=== PATIENT | male | born 1980 | race Caucasian/White ===

== ENCOUNTER → 2020-09-20 12:51 | Outpatient (BNVA) | payer OTHER, SELFPAY | PROVIDERS: PCP Internal Medicine; Visit Provider Surgery ==

== ENCOUNTER 2020-11-14 06:06 | Day surgery (SDC) | payer OTHER, MEDICAID, SELFPAY ==
[2020-11-07 14:11] VITALS: BMI 43.3
--- NOTE | 2020-11-11 07:48 | HO.ANESPROP2 ---
Documented by User: Sarah Quinones 11/11/20 07:49 HPI - Anesthesia Eval Consult details Narrative: 40yo M for Hernia Repair Umbilical with Mesh PMFSH Active Problems Active Problems: All Active Problems (Updated 11/07/20 @ 14:14 by Nathalia Pino) Umbilical hernia (Acute) Past Medical History Medical History Depression Elevated cholesterol HTN (hypertension) Sleep apnea Surgical History Surgical History Hx of adenoidectomy Hx of arthroscopic knee surgery Social History Social History Are you a primary home care administrator to a significant other at home: No Do you presently have visiting nurse or other home services: No Alcohol intake: current Alcohol intake frequency: does not drink Smoking Status: Former smoker Smoking Quit Date: 2002 Use of substances other than those prescribed or required for medical reasons: Yes Substance Use Type Other:: advised to hold marijuana pre-op Substance Use Frequency: Occasionally Have you been hit, kicked, punched, or otherwise hurt by someone within the past year? If so, by whom?: No Advance Directives Information Provided: No Recently lost weight without trying: No Meds Allergies Allergy/AdvReac Type Severity Reaction Status Date / Time No Known Allergies Allergy Verified 11/14/20 06:30 Home Medications Medication Instructions Recorded Confirmed Last Taken Type amlodipine 10 mg tablet 10 mg PO DAILY 09/20/20 11/14/20 11/13/20 19:00 History lisinopril 20 1 tab PO DAILY 09/20/20 11/14/20 11/13/20 19:00 History mg-hydrochlorothiazide 25 mg tablet Abilify 11/14/20 11/14/20 11/13/20 19:00 History hydrochlorothiazide 11/14/20 11/13/20 19:00 History Exam Exam Date and Time: November 11, 2020 0748 Height,Weight and Vital Signs: Height 6 ft 1 in Weight 149 kg Assessment and Plan Assessment Anesthesia Assessment: Chart Reviewed Documented by User: Abby Tse 11/14/20 07:37 PMFSH Past Medical History Medical History Depression Elevated cholesterol HTN (hypertension) Sleep apnea Surgical History Surgical History Hx of adenoidectomy Hx of arthroscopic knee surgery Social History Social History Are you a primary home care administrator to a significant other at home: No Do you presently have visiting nurse or other home services: No Alcohol intake: current Alcohol intake frequency: does not drink Smoking Status: Former smoker Smoking Quit Date: 2002 Use of substances other than those prescribed or required for medical reasons: Yes Substance Use Type Other:: advised to hold marijuana pre-op Substance Use Frequency: Occasionally Have you been hit, kicked, punched, or otherwise hurt by someone within the past year? If so, by whom?: No Advance Directives Information Provided: No Recently lost weight without trying: No Meds Allergies Allergy/AdvReac Type Severity Reaction Status Date / Time No Known Allergies Allergy Verified 11/14/20 06:30 Home Medications Medication Instructions Recorded Confirmed Last Taken Type amlodipine 10 mg tablet 10 mg PO DAILY 09/20/20 11/14/20 11/13/20 19:00 History lisinopril 20 1 tab PO DAILY 09/20/20 11/14/20 11/13/20 19:00 History mg-hydrochlorothiazide 25 mg tablet Abilify 11/14/20 11/14/20 11/13/20 19:00 History hydrochlorothiazide 11/14/20 11/13/20 19:00 History Exam Airway Mallampati Class: II (Esquivel, small mouth) TM Dist: >3cm Neck ROM: Full Loose/Missing/Broken Teeth: No Heart: RRR Lungs: CTA Assessment and Plan Assessment Anesthesia Assessment: Anesthesia Plan Discussed and Chart Reviewed Final Anesthetic Review NPO: Yes ASA Class: III Final Preanesthetic Review: Meds/Allgs Chart Reviewed, Consent Obtained/Reviewed and Anes Risks/Benef Reviewed Patient Risk: Intermediate Procedure Risk: Low Anesthetic Plan Anesthetic Plan: GA Disposition: Standard PACU
[2020-11-14] VITALS (7 sets, daily range): BP systolic 108–133; BP diastolic 61–81; PULSE 86–103; RESP 18–20; TEMP 36.1–37.1; O2SAT 92–99
[2020-11-14] MEDS: Lactated Ringers 1,000 ML 100 ML IVCONT (07:01)
--- NOTE | 2020-11-14 07:13 | MHC.SHP ---
Pre-Procedural Eval Section A The patient is an INPATIENT: No Changes since office visit: Yes Patient answered all questions; No Cold of Flu in the past 2 weeks, No New Medical Problems and No Changes in Medication The History & Physical has been completed within 30 days and I have reviewed it.: Yes Section B Chief Complaint: Umbilical Hernia Allergies: Allergies Allergy/AdvReac Type Severity Reaction Status Date / Time No Known Allergies Allergy Verified 11/14/20 06:30 Plan Diagnosis/Plan: Unchanged I have reviewed the history and physical and performed a pertinent physical examination on my patient. No changes have occurred unless specified.
--- NOTE | 2020-11-14 07:15 | PC.NURSE ---
PATIENT GOT EXTREMELY ANXIOUS AND DIAPHORECTIC WITH IV INSERTION. PATIENT HAS SINCE CALMED DOWN. BP 112/73, HR 88. PATIENT LESS DIAPHORECTIC AT THIS TIME.
--- NOTE | 2020-11-14 07:21 | PC.NURSE ---
PATIENT HAVING PAC'S. ANESTHESIOLOGIST AT BEDSIDE AND IS AWARE. ANESTHESIOLOGIST ASSESSING PATIENT. STRIP RUN.
--- NOTE | 2020-11-14 09:27 | P.OP_ITS ---
Operative Note Operative Note Date of Service: 11/14/20 Narrative: Preoperative diagnosis: Umbilical hernia, large Postoperative diagnosis: Same Procedure: Repair of large umbilical hernia with mesh Surgeon: Buzz Minaya MD Legal Compliance Officer: None Anesthesia: General endotracheal Indications for procedure: 40-year-old male patient with a large umbilical hernia extending above the umbilicus measuring approximately 8 cm in diameter. Operative findings: Fascial defect noted to be approximately 4 cm in diameter. This was repaired using an 8 cm round Ventralex Specimen: Omentum, hernia sac Estimated blood loss: 20 mL Complications: None Procedure details: Patient was brought to the OR and placed in a supine position. After administering general anesthesia the patient's abdomen was prepped with ChloraPrep and draped in a sterile fashion. A surgical time-out wa s called and the consent confirmed. Patient received preoperative antibiotics and Venodyne boots were in place. Local anesthesia consisting of 0.75% Sensorcaine with epinephrine was then infiltrated in the midline surrounding the umbilicus. A midline incision was made measuring approximately 12 cm in length to about the level of the umbilicus. This was carried out through subcutaneous tissue and up to the hernia sac. The hernia sac was then circumferentially dissected free down to the fascial defect. Umbilical skin was elevated off the fascial defect using electrocautery. Hemostasis was assured all times using electrocautery. Hemostasis was also assured using free ties of 3-0 Polysorb. When the hernia sac was completely the dissected free the sac was entered and omentum found with in the hernia sac. This was densely adherent to the hernia sac. This needed to be lysed using electrocautery. A large redundant omentum was then excised using LigaSure. Hemostasis was assured using electric cautery. The remainder of the omentum was returned to abdominal cavity. Peritoneal sac was then excised and the peritoneum closed using a running 0 Polysorb suture. The preperitoneal spa ce was then dissected free using electrocautery measuring approximately 9 cm in diameter. The 8 cm round Ventralex mesh was then obtained. This was then placed in the preperitoneal space and secured in 4 quadrants using 1 Tycron sutures. Fascia was then closed over the mesh incorporating the mesh in the closure using [id number] 1 Tycron sutures. Wounds were then irrigated and suctioned dry. Additional local anesthesia was applied at this time. Deep subcutaneous tissue was closed using interrupted 3-0 Polysorb sutures. Umbilical skin was attached to the fascia using a 3-0 Polysorb suture. Dermis was reapproximated using interrupted 3 0 Polysorb sutures. Skin was then closed using a running subcuticular 4 0 Polysorb suture. Steri-Strips 4 x 4 gauze and Tegaderm were then applied. The patient tolerated the procedure well. Sponge, instrument, needle counts were reported as correct. The patient was transferred to PACU in stable condition.
[2020-11-14] MEDS: oxyCODONE HCl Immed Release 5 MG TABLET 10 MG PO (09:50)
== END 2020-11-14 11:21 | disposition home or self-care (01) ==
PROVIDERS: PCP Internal Medicine; Visit Provider Surgery
PROC: (CPT 49585; principal; 2020-11-14 07:30)
DX: K42.9 Umbilical hernia without obstruction or gangrene (principal); I10 Essential (primary) hypertension; G47.33 Obstructive sleep apnea (adult) (pediatric); Z79.899 Other long term (current) drug therapy
CPT/HCPCS: 49585; 88302; 88304; C1781; J0131; J0330; J0690; J1100; J1885; J2250; J2370; J2405; J3010

== ENCOUNTER → 2020-11-25 08:25 | Outpatient (BNVA) | payer OTHER, SELFPAY | PROVIDERS: PCP Internal Medicine; Visit Provider Surgery ==

== ENCOUNTER → 2020-12-22 08:05 | Outpatient (BNVA) | payer OTHER, SELFPAY | PROVIDERS: PCP Internal Medicine; Referring Provider Internal Medicine; Visit Provider Surgery ==

== ENCOUNTER 2025-05-28 14:33 | Outpatient (REF) | payer OTHER, SELFPAY ==
[2025-05-28 16:03] LABS: MANUAL DIFF FLAG NO
[2025-05-28 16:16] LABS: Hematocrit 49.5 % (42.0-52.0); Hemoglobin 17.1 g/dl (14.0-18.0); Imm Gran Abs Auto 0.01 X10*3/uL (0.00-0.03); Imm Gran Pct Auto 0.2 % (0.0-0.4); Lymphocytes Absolute Auto 2.7 X10*3/uL (1.2-4.9); Mean Corpuscular HGB Conc 34.5 g/dl (31.0-36.0); Mean Corpuscular Hemoglobin 30.5 pg (27.0-33.0); Mean Corpuscular Volume 88.2 fL (80.0-98.0); NRBC Abs Auto 0.000 X10*3/uL (0.0-0.012); NRBC Pct Auto 0.0 /100WBC (0.0-0.2); Platelet Count 289 X10*3/uL (160-400); Red Blood Count 5.61 X10*6/uL (4.60-5.80); White Blood Count 6.6 X10*3/uL (4.8-10.8)
--- OUTSIDE RECORDS SUMMARY | 2025-05-28 17:06 | XMS_ITS | Encounter Summary ---
Author Organization [employer] Address [address] [place] [address] Care Team Providers Care Felt Coverer Name Role Phone Paul Owusu MD Primary Care Prov ider Encounter Details Date Type Department Care Team (Late st Contact Info) Description 05/28/2025 Orders Only GENERIC EXTERNAL DATA DEPARTMENT Provider, Generic External Data Social History Tobacco Use Types Packs/Day Years Used Date Smoking Tobacco: Never Assessed Depression Answer Date Recorded Patient Health Questionnaire-9 Score 0 11/01/2022 Housing Stability Answer Date Recorded What is your housing situation today? I have rosalee tatiana 06/12/[address] you li ve. Do you have problems with any of the following? None of the above 06/12/2023 Food Insecurity Answer Date Recorded Within the past 12 months, y ou worried that your food would run out before you got money to buy more: Never True 06/12/2023 Within the past 12 months,th e food you bought just didn't last and you didn't have enough money to get more: Never True 08/2022 Transportation Answer Date Recorded In the past 12 months, has l ack of transportation kept you from medical appts, meetings, work or from getting things needed for daily living? No 06/12/2023 Utilities Answer Date Recorded In the past 12 months, has t he electric, gas, oil or water company threatened to shut off services in your home? No 06/12/2023 Depression Answer Date Recorded Patient Health Questionnaire-2 Score 0 11/01/2022 Sex and Gender Information Value Date Recorded Sex Assigned at Male 06/11/2022 10:28 AM EDT Legal Sex Male 10:28 AM EDT Gender Identity Female 06/11/2022 10:28 AM EDT Sexual Orientation Straight 06/11/2022 10 :28 AM EDT documented as of this encounter Plan of Treatment Not on file documented as of this encounter Procedures Procedure Name Priority Date/Time Associated Diagnosis Comments CBC WITH AUTO DIFFERENTIAL Routine 05/28/2025 2:40 PM EDT documented in this encounter Results * (ABNORMAL) CBC auto differential (05/28/2025 2:40 PM EDT) White Blood Count 6.6 4.8 - 10.8 X10*3/uL [facility] Red Blood Count 5.61 4.60 - 5.80 X10*6/uL [facility] Hemoglobin 17.1 14.0 - 18.0 g/dl [facility] Hematocrit 49.5 42.0 - 52.0 % [facility] Mean Corpuscular Volume 88.2 80.0 - 98.0 fL [facility] Mean Corpuscular Hemoglobin 30.5 27.0 - 33.0 pg [facility] Mean Corpuscular HGB Conc 34.5 31.0 - 36.0 g/dl [facility] Red Cell Distribution Width 12.5 11.0 - 16.0 % [facility] Platelet Count 289 160 - 400 X10*3/uL [facility] Mean Platelet Volume 9.7 9.4 - 12.4 fL [facility] Neutrophils Percent Auto 50.6 45 - 73 % [facility] Imm Gran Pct Auto 0.2 0.0 - 0.4 % [facility] Lymphocytes Percent Auto 40.2(H) 20 - 40 % [facility] Monocytes Percent Auto 6.1 2 - 11 % [facility] Eosinophils Percent Auto 2.3 0 - 4 % [facility] Basophils Percent Auto 0.6 0 - 2 % [facility] NRBC Pct Auto 0.0 0.0 - 0.2 /100WBC [facility] Neutrophils Absolute Auto 3.4 2.0 - 8.3 x10*3/uL [facility] Imm Gran Abs Auto 0.01 0.00 - 0.03 X10*3/uL [facility] Lymphocytes Absolute Auto 2.7 1.2 - 4.9 X10*3/uL [facility] Monocytes Absolute Auto 0.4 0.1 - 1.2 X10*3/uL [facility] Eosinophils Absolute Auto 0.2 0.0 - 0.4 X10*3/uL [facility] Basophils Absolute Auto 0.0 0.0 - 0.2 X10*3/uL [facility] NRBC Abs Auto 0.000 0.0 - 0.012 X10*3/uL [facility] 05/28/2025 2:40 PM EDT 05/28/2025 4:01 PM EDT us Generic External Data Provider LAB BLOOD ORDERAB LES Final Result [facility] [address] [place] [address] [phone] documented in this encounter Visit Diagnoses Not on filedocumented in this encounter Additional Health Concerns Assessment Noted Time PHQ-9 Depression Total Score: 0 11/02/19 23 3:07 PM EDT documented as of this encounter Care Teams Felt Coverer Relationship Specialty Start Date End Date Paul Owusu MD [address] [place] [id number] PCP - General Internal Medicine 01/05/20 documented as of this encounter
--- OUTSIDE RECORDS SUMMARY | 2025-05-28 17:06 | XMS_ITS | Clinical Summary ---
Author Organization [employer] Address [address] [place] [address] [address] [place] [address] Care Team Providers Care Heel Blacker Name Role Phone Paul Owusu MD Primary Care Prov ider Allergies No known active allergies Medications amLODIPine (Norvasc) 10 MG tablet TAKE 1 TABLET BY MOUTH EVERY DAY IN THE MORNING 90 tablet 3 10/01/2023 Active lisinopril-hydr oCHLOROthiazide 20-25 MG tablet TAKE 1 TABLET BY MOUTH EVERY DAY IN THE MORNING 90 tablet 3 12/11/2023 Active Active Problems Problem Noted Date Diagnosed Date Primary hypertension 11/01/2022 Assessment & Plan (11/01/2022 3:37 PM EDT): Controlled, on amlodipine, lisinopril/hctz, no changes will be made, reinforced low sodium diet and exercise as tolerated Morbid obesity (CMS/[facility]) 11/01/2022 Assessment & Plan (11/01/2022 3:38 PM EDT): Will refer to bariatric surgery Fertility testing 11/01/2022 Assessment & Plan (11/01/2022 3:38 PM EDT): Will order a semen analysis, patient refer has been more than 1 year trying to conceive unsucessfully Encounters Date Type Department Care Team Description 05/28/2025 Orders Only GENERIC EXTERNAL DATA DEPARTMENT Provider, Generic External Data from Last 3 Months Immunizations Immunization Administration Dates Next Due Tdap 11/01/2022 Social History Tobacco Use Types Packs/Day Years Used Date Smoking Tobacco: Never Assessed Depression Answer Date Recorded Patient Health Questionnaire-9 Score 0 11/01/2022 Housing Stability Answer Date Recorded What is your housing situation today? I have rosalee simpson 06/12/[address] you li [...] Orientation Straight 06/11/2022 10 :28 AM EDT Last Filed Vital Signs Vital Sign Reading Time Taken Comments Blood Pressure 122/77 11/01/2022 3:06 PM EDT Pulse 80 11/01/2022 3:06 PM EDT Temperature 36.9 C (98.4 F) 11/01/2022 3:06 PM EDT Respiratory Rate 20 11/01/2022 3:06 PM EDT Oxygen Saturation - - Inhaled Oxygen Concentration - - Weight 133 kg (293 lb) 11/01/2022 3:06 PM EDT Height 182.9 cm (6') 11/01/2022 3:06 PM EDT Body Mass Index 39.74 11/01/2022 3:06 PM EDT Plan of Treatment Health Maintenance Due Date Last Done Comments CT Colonography 1979 Colonoscopy 1979 Colorectal Cancer Screening 1979 FIT DNA/Cologuard 1979 FIT 1979 FOBT 1979 HIV Screening 1979 Sigmoidoscopy 1979 Disability Screening 1979 Alcohol/Substance Use Screening 1991 Tobacco Screening 1991 Family Planning (PISQ) 1994 HPV Vaccines (1 - 3-dose series) 1994 Hepatitis B Vaccines (1 of 3 - 19+ 3-dose series) 1998 Depression Screening 11/02/2023 11/01/2022, 11/02/19 23 SDOH Screening 11/02/2023 11/01/2022 COVID-19 Vaccine ( season) 2025 08/03/2021, 01/30/2021, 01/02/2021 Influenza Vaccine (#1) 2025 , 08/14/2016, 05/24/2015, Additional history exists Lipid Panel 10/26/2026 10/26/2021, 2020 Zoster Vaccines (1 of 2) 2029 DTaP/Tdap/Td Vaccines (3 - Td or Tdap) 11/01/2032 11/01/2022, 10/21/2012 RSV Patients and Patients Aged 60 years or older (1 - 1-dose 75+ series) 2054 Hepatitis C Screening Completed 10/26/2021 HIB Vaccines Aged Out No longer eligi ble based on patient's age to complete this topic Hepatitis A Vaccines Aged Out No long er eligible based on patient's age to complete this topic IPV Vaccines Aged Out No longer eligi ble based on patient's age to complete this topic Meningococcal B Vaccine Aged Out No l onger eligible based on patient's age to complete this topic Meningococcal Vaccine Aged Out No shabana reji eligible based on patient's age to complete this topic Pneumococcal Vaccine: Pediatrics (0 to 5 Years) and At-Risk Patients (6 to 49) Years Aged Out No longer eligible based on patient's age to complete this topic RSV under 20 months Aged Out No longe r eligible based on patient's age to complete this topic Rotavirus Vaccines Aged Out No longer eligible based on patient's age to complete this topic Procedures Procedure Name Priority Date/Time Associated Diagnosis Comments CBC WITH AUTO DIFFERENTIAL Routine 05/28/2025 2:40 PM EDT ZZZ HISTORICAL HEPATITIS C AB W/REFL TO HCV RNA, QN, PCR Routine 10/26/2021 9:15 AM EDT LIPID PANEL, STANDARD Routine 10/26/2021 9:15 AM EDT from Last 3 Months or Most Recently Relevant to Health Maintenance Results * (ABNORMAL) CBC auto differential (05/28/2025 2:40 PM EDT) White Blood Count 6.6 4.8 - 10.8 X10*3/uL [facility] Red Blood Count 5.61 4.60 - 5.80 X10*6/uL [facility] Hemoglobin 17.1 14.0 - 18.0 g/dl [facility] Hematocrit 49.5 42.0 - 52.0 % [facility] Mean Corpuscular Volume 88.2 80.0 - 98.0 fL [facility] Mean Corpuscular Hemoglobin 30.5 27.0 - 33.0 pg [facility] Mean Corpuscular HGB Conc 34.5 31.0 - 36.0 g/dl [facility] Red Cell Distribution Width 12.5 11.0 - 16.0 % [facility] Platelet Count 289 160 - 400 X10*3/uL [facility] Mean Platelet Volume 9.7 9.4 - 12.4 fL [facility] Neutrophils Percent Auto 50.6 45 - 73 % [facility] Imm Gran Pct Auto 0.2 0.0 - 0.4 % [facility] Lymphocytes Percent Auto 40.2(H) 20 - 40 % [facility] Monocytes Percent Auto 6.1 2 - 11 % [facility] Eosinophils Percent Auto 2.3 0 - 4 % [facility] Basophils Percent Auto 0.6 0 - 2 % [facility] NRBC Pct Auto 0.0 0.0 - 0.2 /100WBC [facility] Neutrophils Absolute Auto 3.4 2.0 - 8.3 x10*3/uL [facility] Imm Gran Abs Auto 0.01 0.00 - 0.03 X10*3/uL [facility] Lymphocytes Absolute Auto 2.7 1.2 - 4.9 X10*3/uL [facility] Monocytes Absolute Auto 0.4 0.1 - 1.2 X10*3/uL [facility] Eosinophils Absolute Auto 0.2 0.0 - 0.4 X10*3/uL [facility] Basophils Absolute Auto 0.0 0.0 - 0.2 X10*3/uL [facility] NRBC Abs Auto 0.000 0.0 - 0.012 X10*3/uL [facility] 05/28/2025 2:40 PM EDT 05/28/2025 4:01 PM EDT us Generic External Data Provider LAB BLOOD ORDERAB LES Final Result Performing Organization Address [facility] Co de Phone Number [facility] [address] [place] [address] [phone] * HEPATITIS C AB W/REFL TO HCV RNA, QN, PCR (10/26/2021 9:15 AM EDT) HEPATITIS C ANTIBODY NON-REACT PITA NON-REACT PITA [facility] INDEX 0.00 <1.00 [facility] Comment: HCV antibody was non-reactive. There is no laboratory evidence of HCV infection. In most cases, no further action is required. However, if recent HCV exposure is suspected, a test for HCV RNA (test code 41650) is suggested. For additional information please refer to http://education.Smartdate.Anacomp/faq/RMH28s7 (This link is being provided for informational/ educational purposes only.) 10/26/2021 9:15 AM EDT us Paul Alvarado MD HISTORICAL/NON ORD ERABLE LABS Final Result Performing Organization Address City/[facility]/ZIP Co de Phone Number [facility] [address] [place] [address], * (ABNORMAL) LIPID PANEL, STANDARD (10/26/2021 9:15 AM EDT) Chol/HDLC Ratio 5.3(H) <5.0 (calc) [facility] Cholesterol, Total 207(H) <200 mg/dL [facility] HDL Cholesterol 39(L) > OR = 40 mg/dL [facility] LDL Cholesterol 141(H) mg/dL (calc) [facility] Comment: Reference range: <100 Desirable range <100 mg/dL for primary prevention; <70 mg/dL for patients with CHD or diabetic patients with > or = 2 CHD risk factors. LDL-C is now calculated using the Ramy-Carter calculation, which is a validated novel method providing better accuracy than the Friedewald equation in the estimation of LDL-C. Ramy SS et al. CAROLANN. 2013;310(19): 2482-8316 (http://education.[employer].com/faq/CMD637) Non-HDL Cholesterol 168(H) <130 mg/dL (calc) [facility] Comment: For patients with diabetes plus 1 major ASCVD risk factor, treating to a non-HDL-C goal of <100 mg/dL (LDL-C of <70 mg/dL) is considered a therapeutic option. Triglycerides 144 <150 mg/dL [facility] 10/26/2021 9:15 AM EDT Paul Alvarado MD LAB BLOOD ORDERABL ES Final Result [facility] [address] from Last 3 Months or Most Recently Relevant to Health Maintenance Insurance [address] [place] [id number] [facility] [address] [place] [address] Care Teams Heel Blacker Relationship Specialty Start Date End Date ForrestPaul Sandoval MD [address] [place] [phone] PCP - General Internal Medicine 01/05/20
[2025-05-28 17:26] LABS: Alanine Aminotransferase 45 U/L (0-40); Albumin Level 4.9 g/dL (3.5-5.0); Alkaline Phosphatase 110 U/L (39-117); Anion Gap 14 (12-20); Aspartate Amino Transferase 28 U/L (5-37); Blood Urea Nitrogen 12 mg/dL (9-16); Calcium 9.9 mg/dL (8.4-10.2); Carbon Dioxide 26 mmol/L (22-29); Chloride 101 mmol/L (96-108); Cholesterol 257 mg/dL (<200); Estimated Glomerular Filt Rate > 60; HDL Cholesterol 41 mg/dL (>40); Potassium 4.1 mmol/L (3.3-5.1); Sodium 137 mmol/L (135-145); Total Protein 7.5 g/dL (6.5-8.0); Triglycerides 137 mg/dL (<150)
== END 2025-05-28 14:34 | disposition home or self-care (01) ==
LOC: HO.HMGCLDS 14:33
PROVIDERS: PCP Internal Medicine; Visit Provider Nurse Practitioner Psychiatric/Mental Health
DX: Z79.899 Other long term (current) drug therapy (principal)
CPT/HCPCS: 36415; 80053; 80061; 85025